=== PATIENT | female | born 1935 | race Caucasian/White ===

== ENCOUNTER 2017-06-11 10:12 | Emergency (ER) | payer OTHER ==
[~2017-06-11] VITALS: Ht 160 cm; Wt 65.3 kg
[2017-06-11] MEDS ORDERED: TESSALON PERLE100 MG PO (13:34)
[2017-06-11 13:46] VITALS: BP 152/83
== END 2017-06-11 13:47 | disposition home or self-care (01) ==
LOC: EME 10:12
DX: J06.9 Acute upper respiratory infection, unspecified (principal); M79.1 Myalgia
CPT/HCPCS: 71046; 87502; 99281; 99283

== ENCOUNTER 2017-06-21 18:35 | Emergency (ER) | payer OTHER ==
[~2017-06-21] VITALS: Ht 162.6 cm; Wt 65.2 kg
[~2017-06-21 18:35] MED LIST: TESSALON PERLE100 MG PO
[2017-06-21] MEDS ORDERED: NORCO 5/3251 TABLET PO (22:08)
[2017-06-21 22:58] VITALS: BP 134/84
== END 2017-06-21 23:04 | disposition home or self-care (01) ==
LOC: EME 18:35 → EXP 18:35
PROC: 2W3CX1Z Immobilization of Right Lower Arm using Splint (ICD-10-PCS; principal; 2017-06-21)
DX: S52.501A Unspecified fracture of the lower end of right radius, initial encounter for closed fracture (principal); M54.2 Cervicalgia; W10.9XXA Fall (on) (from) unspecified stairs and steps, initial encounter
CPT/HCPCS: 73060; 73090; 99281; 99284